=== PATIENT | female | born 1940 | race Caucasian/White ===

== ENCOUNTER 2017-02-28 15:37 | Emergency (ER) | payer MEDICARE, OTHER ==
[~2017-02-28] VITALS: Ht 157.5 cm; Wt 85.0 kg
[~2017-02-28 15:37] MED LIST: AMLO1CAP5 PO; ASPI-973 PO; ATOR80TA PO; CITA40TA PO; ESOM40CA53 PO; EZET10T PO; FERR-83 PO; HCTZ25 PO; IPRA3AMP IH; MTP50TCR PO; OMEP40CA3 PO; QVAR80 INH; SALM50DI IH; ZAN150T PO
[2017-02-28 15:41] VITALS: BP 143/68; PULSE 75; RESP 18; O2SAT 97
--- NOTE | 2017-02-28 17:54 | DRSVH ---
PROCEDURE: CT BRAIN WITHOUT CONTRAST ([id number]) INDICATIONS: 76 year-old female status post fall. TECHNIQUE: Noncontrast 4.5 mm thick angled axial sections acquired from the foramen magnum to the vertex, with c oronal reformats. COMPARISON: None. FINDINGS: Image quality: Excellent. CSF spaces: Basal cisterns are patent. No extra-axial fluid collections. The ventricles are symmet isaac in size and shape. Brain: No intracranial bleeds or masses. There are moderate periventricular and deep white matter c hronic small vessel ischemic changes. There is intracranial internal carotid artery atherosclerosis. Skull and face: Calvarium and visualized facial bones appear intact, without suspicious lesions. Sinuses: Visualized sinuses and mastoids are clear. IMPRESSION: No acute intracranial abnormalities after fall. Moderate periventricular and deep white m atter chronic small vessel ischemic change. Dictated by: Alonso Wise M.D. on 02/28/2017 at 17:50 Approved by: Alonso Wise M.D. on 02/28/2017 at 17:52
--- NOTE | 2017-02-28 18:04 | DRSVH ---
PROCEDURE: CT CERVICAL SPINE WITHOUT CONTRAST ([id number]) INDICATIONS: 76 year-old female with neck pain after fall. TECHNIQUE: Noncontrast 3 mm thick sections acquired from the skull base to the T4 level. Sagittal and coronal r eformats were then constructed. For radiation dose reduction, the following was used: automated exp osure control, adjustment of mA and/or kV according to patient size. COMPARISON: None. FINDINGS: Image quality: Excellent. Bones: No fractures or dislocations. Visualized superior ribs are intact. There is moderate C4-C5 t hrough C6-C7 disc degeneration. Soft tissues: Prevertebral soft tissues are normal in thickness. No paravertebral hematomas. No ap ical pneumothoraces. There is bilateral carotid bifurcation atherosclerosis. IMPRESSION: No acute bony injuries of the cervical and upper thoracic spine from the foramen magnum t o the T4-T5 level. Moderate mid and lower cervical spine disc degeneration. Dictated by: Alonso Wise M.D. on 02/28/2017 at 17:57 Approved by: Alonso Wise M.D. on 02/28/2017 at 18:02
--- NOTE | 2017-02-28 18:28 | DRSVH ---
PROCEDURE: X-RAY RIGHT FOREARM, TWO VIEWS ([id number]) INDICATIONS: 76 year-old female status post ground level fall. TECHNIQUE: 2 views of the forearm were acquired. COMPARISON: None. FINDINGS: Bones: No fractures or dislocations. There is negative ulnar variance. No suspicious bony lesions. Soft tissues: No suspicious soft tissue calcifications or masses. IMPRESSION: No acute bony injuries of the right forearm. Dictated by: Alonso Wise M.D. on 02/28/2017 at 18:25 Approved by: Alonso Wise M.D. on 02/28/2017 at 18:26
--- NOTE | 2017-02-28 18:30 | DRSVH ---
PROCEDURE: X-RAY RIGHT SHOULDER, MINIMUM TWO VIEWS ([id number]) INDICATIONS: 76 year-old female with right shoulder pain after fall. TECHNIQUE: 3 views of the shoulder were acquired. COMPARISON: [facility], CR, SHOULDER MIN 2VW (RT), 12/02/2012, 0:29. FINDINGS: Bones: No fractures or dislocations of the shoulder. There is age indeterminate lateral right sixth rib fracture. No suspicious bony lesions. There is mild acromioclavicular joint degeneration. Visua lized ribs appear intact. There is superior humeral head migration, with narrowed acromiohumeral inte rval. Soft tissues: No suspicious soft tissue calcifications. IMPRESSION: 1. Age indeterminate fracture of the lateral right sixth rib. 2. Findings of right shoulder rotator cuff arthropathy. Dictated by: Aolnso Wise M.D. on 02/28/2017 at 18:26 Approved by: Alonso Wise M.D. on 02/28/2017 at 18:28
--- NOTE | 2017-02-28 18:35 | ED.REPORT ---
HPI-Trauma Minor / Fall Date of Service Feb 28, 2017 ED Provider: Tyrese Hanna DO A 76 year old female with a history of hypertension, COPD and pneumonia presents to the ED due to a fall. The pt was standing up after picking up her cat from under a bed when she fell backwards, hitting the right side of her head against a door jam. The pt denies loss of consciousness but admits to right arm pain, right shoulder pain and pain on the right side of her head. Nursing Notes Stated Complaint: FALL, HEAD INJURY Chief Complaint: Multiple Trauma/Fall Nursing Notes Reviewed: Yes Allergies: Coded Allergies: amoxicillin (Verified Allergy, Unknown, 02/28/17) clavulanic acid (Verified Allergy, Unknown, 02/28/17) fluoxetine HCl (Verified Allergy, Unknown, 02/28/17) Scheduled Amlodipine/Benazepril-Expunged, Do Not Renew! (Lotrel 10/10-Expunged Drug, Do Not Renew!) 1 Cap Capsule 1 CAP PO DAILY Aspirin (Aspirin) 81 Mg Tablet 81 MG PO DAILY Atorvastatin-Expunged Drug, Do Not Renew! (Atorvastatin-Expunged Drug, Do Not Renew!) 80 Mg Tablet 80 MG PO DAILY For Cholesterol Management. Beclomethasone-Expunged Drug, Do Not Renew! (Uwlz-09-Iqdfjklg Drug, Do Not Renew !) 80 Mcg Puff 2 PUFF INH BID SHAKE WELL*RINSE MOUTH AFTER USE* Citalopram-Expunged Drug, Do Not Renew! (Citalopram-Expunged Drug, Do Not Renew! ) 40 Mg Tablet 40 MG PO DAILY Ezetimibe (Zetia) 10 Mg Tablet 10 MG PO DAILY Ferrous Sulfate (Ferrous Sulfate) 325 Mg Tablet 325 MG PO DAILY Hydrochlorothiazide-Expunged, Do Not Renew! (Hydrochlorothiazide-Expunged, Do Not Renew!) 25 Mg Tablet 12.5 MG PO DAILY Metoprolol Suc-Expunged Drug, Do Not Renew! (Metoprolol Suc-Expunged Drug, Do Not Renew!) 50 Mg Tber 50 MG PO DAILY Omeprazole-Expunged Drug, Do Not Renew! (Omeprazole-Expunged Drug, Do Not Renew! ) 40 Mg Capsule.dr 40 MG PO DAILY EVERY DAY BEFFORE AM MEAL Ranitidine 150 MG Tablet (Zantac 150 MG Tablet) 150 Mg Tab 2 TAB PO HS Salmeterol Rita-Expunged Drug, Do Not Renew! (Serevent Diskus-Expunged Drug, Do Not Renew!) 50 Mcg/Disk W/Dev Disk.w.dev 1 PUFF IH BID Scheduled PRN Ipratropium/Albuterol Sulfate (Iprat-Albut 0.5-3(2.5) mg/3 mL Inhalant Soln) 3 Ml Ampul.neb 3 ML IH Q6 PRN PRN For Shortness of Breath Miscellaneous Medications Esomeprazole Magnesium (Esomeprazole Magnesium) 40 Mg Capsule. 40 MG PO General Time Seen by MD: 18:35 Chief Complaint Fall Hx Obtained From: Patient Arrived By: Walk-in Onset Occurred: 1 - 4 hours ago Symptom Duration: Since onset Recent Healthcare: Recent doctor visit Similar Sx Previous: No Risk Factors Head CT Imaging Patient Presents WITHOUT: Loss of Conciousness, PostTraumatic Amnesia, PROCEED W/ CONSIDERATIONS Consider Non Contrast CT for: >/= 60 yo Age WITHOUT LOCNo Vomiting RF Statements: Risk factors reviewed Past Medical History Past Medical History hypertension COPD pneumonia hiatal hernia arthritis depression Past Surgical History Reports: Appendectomy, Cholecystectomy, Hysterectomy, Tonsillectomy Smoking History Former Smoker (quit 1991) Social History Other Social History: Good social support Ambulatory Status Independent Review of Systems Constitutional: Denies: Chills, Fatigue, Fever Eyes: Denies: Blurred left, Blurred right Ears / Nose / Throat: Denies: Ear drainage right Respiratory: Denies: Non-productive cough, Shortness of breath Musculoskeletal: Reports: Back pain, Extremity pain, Joint pain, Denies: Neck pain Skin: Denies Rash Neurologic: Reports: Headache (right-sided) Complete sys rev & neg: except as marked. Cardiovascular: Denies: Chest pain GI: Denies: Abdominal pain, Vomiting Physical Exam Initial Vital Signs Vital Signs (First) Date Time Temp Pulse Resp B/P Pulse Ox O2 Delivery O2 Flow Rate FiO2 02/28/17 15:41 36.4 75 18 143/68 97 Room Air Initial VS: Reviewed General/Constitutional: Awake, Alert Neck: Supple, Full range of motion cervical spine tenderness Head / Eyes: Normocephalic, PERRL, EOMI posterior occipital tenderness ENT: Airway patent, Mucous membranes moist Respiratory / Chest: Breath sounds NL, Breath sounds = bilat, No respiratory distress right sided chest wall tenderness Cardiovascular: Heart rate NL, Regular rhythm, Heart sounds NL Abdomen: Atraumatic, Soft, Non-tender Back: Full range of motion Upper Extremity / MS: Full range of motion, Neurologic intact, Vascular intact lateral shoulder tenderness Lower Extremity / Pelvis / MS: Full range of motion, Neurologic intact, Vascular intact Skin: Color NL, Warm, Dry Neurologic: Oriented X3, Speech NL, No motor deficits, No sensory deficits Psychiatric: Affect NL, Mood NL Interpretation & Diagnostics Interpretation & Diagnostics: Right Forearm X-Ray: IMPRESSION: No acute bony injuries of the right forearm. Dictated by: Alonso Wise M.D. on 02/28/2017 at 18:25 Approved by: Alonso Wise M.D. on 02/28/2017 at 18:26 Lab Results Interpretation Test 02/28/17 18:03 Hold Urine Received (Received) Pulse Oximetry Interpretation Pulse Oximetry Interpretation: 97% on room air Pulse Oximetry: Pulse Ox normal X-Ray Interpretation Xray Interpretation: Your evaluation was reassuring. Call your primary care physician to arrange a follow up appointment in the next several days for further evaluation. Return to the emergency department if you develop any new or worsening symptoms. X-Ray Ordered: Shoulder right Interpretation / Wet Read by: Interpret - Radiologist CT Head Interpretation IMPRESSION: No acute intracranial abnormalities after fall. Moderate periventricular and deep white matter chronic small vessel ischemic change. Dictated by: Alonso Wise M.D. on 02/28/2017 at 17:50 Approved by: Alonso Wise M.D. on 02/28/2017 at 17:52 Interpretation / Wet Read by: Interpret - Radiologist CT C-Spine Interpretation IMPRESSION: No acute bony injuries of the cervical and upper thoracic spine from the foramen magnum to the T4-T5 level. Moderate mid and lower cervical spine disc degeneration. Dictated by: Alonso Wise M.D. on 02/28/2017 at 17:57 Approved by: Alonso Wise M.D. on 02/28/2017 at 18:02 Interpretation / Wet Read by: Interpret - Radiologist Re-Eval/Medical Decision Source of Hx: Old records Re-Evaluation/Progress : Time of Eval: 18:50 Patient Status: Condition improved Re-Evaluation/Progress Note: Pt rechecked, who is comfortable. The diagnosis and plan for discharge are discussed. The pt understands and agrees with the plan. All questions are addressed at this time. Counseled Regarding: Diagnosis, Lab results, Need for follow-up, When/why to return to ED Discharge & Departure Impression: Primary Impression: Head trauma Encounter type: initial encounter Qualified Code: S09.90XA - Unspecified injury of head, initial encounter Additional Impressions: Rib fracture Encounter type: initial encounter Rib fracture type: single rib Fracture type: closed Laterality: right Qualified Code: S22.31XA - Fracture of one rib, right side, initial encounter for closed fracture Shoulder contusion Encounter type: initial encounter Laterality: right Qualified Code: S40.011A - Contusion of right shoulder, initial encounter Disposition: Home Discharge Condition All VS Reviewed: Yes Condition: Stable Patient Instructions: Contusion in Adults (ED), Rib Fracture (ED) Additional Instructions: Take acetaminophen as directed for pain. Call your primary care physician to arrange a follow up appointment in the next several days for further evaluation. Return to the emergency department if you develop any new or worsening symptoms such as increasing pain, lightheadedness, weakness, nausea, vomiting or fever. Referrals: Aurelia Kilgore DO (PCP) Scribe Attestation Portions of this note were transcribed by Bentley Perez. I, Dr. Hanna personally performed the history, physical exam and medical decision-making; I reviewed and confirmed the accuracy of the information in the transcribed note. copies to: Aurelia Kilgore Todd P DO Feb 28, 2017 18:35 BENTLEY PEREZ Feb 28, 2017 18:56
[2017-02-28 19:15] VITALS: BP 157/77; PULSE 67; RESP 18; O2SAT 97
== END 2017-02-28 19:16 | disposition home or self-care (01) ==
LOC: SED 15:37
DX: S22.31XA Fracture of one rib, right side, initial encounter for closed fracture (principal); S40.011A Contusion of right shoulder, initial encounter; S09.8XXA Other specified injuries of head, initial encounter; W01.198A Fall on same level from slipping, tripping and stumbling with subsequent striking against other object, initial encounter; Y93.89 Activity, other specified; Y92.003 Bedroom of unspecified non-institutional (private) residence as the place of occurrence of the external cause; Y99.8 Other external cause status; M79.621 Pain in right upper arm; I10 Essential (primary) hypertension; J44.9 Chronic obstructive pulmonary disease, unspecified; F32.9 Major depressive disorder, single episode, unspecified; Z87.01 Personal history of pneumonia (recurrent); Z90.49 Acquired absence of other specified parts of digestive tract; Z90.89 Acquired absence of other organs; Z90.710 Acquired absence of both cervix and uterus; Z79.82 Long term (current) use of aspirin; Z87.891 Personal history of nicotine dependence; Z88.1 Allergy status to other antibiotic agents; Z88.8 Allergy status to other drugs, medicaments and biological substances